=== PATIENT | male | born 1980 | race Two or more races ===

== ENCOUNTER 2022-10-04 20:17 | Emergency (ER) | payer SELFPAY ==
[~2022-10-04] VITALS: Ht 157.5 cm; Wt 81.8 kg
[2022-10-04 20:58] VITALS: BP 145/90
[2022-10-04] MEDS ORDERED: IBUP-2070 PO (20:59)
[2022-10-04] MEDS ORDERED: PENI500T2 PO (20:59)
[2022-10-04] MEDS ORDERED: IBUPROFEN 600 MG TABLET PO ONE (21:00)
[2022-10-04] MEDS ORDERED: HYDROCODONE/ACETAMINOPHEN 5-325 MG TABLET PO ONE (21:15)
== END 2022-10-04 21:21 | disposition home or self-care (01) ==
LOC: EMS 20:19
DX: K13.79 Other lesions of oral mucosa (principal); K02.9 Dental caries, unspecified
CPT/HCPCS: 99282; Z7502; Z7610